=== PATIENT | male | born 1960 | race Caucasian/White ===

== ENCOUNTER → 2023-05-01 07:17 | Outpatient (REF) | payer OTHER, SELFPAY | LOC: DHCBS MAIN 07:17 | PROVIDERS: ATTENDING PHYSICIAN Internal Medicine Cardiovascular Disease; FAMILY PHYSICIAN Family Medicine | DX: I48.92 Unspecified atrial flutter (principal); I10 Essential (primary) hypertension | CPT/HCPCS: 93306 ==

== ENCOUNTER 2023-05-10 05:50 | Day surgery (SDC) | payer OTHER, SELFPAY ==
[2023-04-28 12:52] VITALS: BMI 26.5
[2023-04-28 12:59] LABS: % Basophils 0.5 % (0-2); % Eosinophils 1.6 % (0-6); % Immature Granulocytes 0.3 % (0-0.5); % Lymphocytes 25.6 % (20.5-51.1); % Monocytes 6.8 % (1.7-9.3); % Neutrophils 65.2 % (42.2-75.2); Absolute Eosinophils 0.1 10^3/uL (0-0.7); Absolute Lymphocytes 1.7 10^3/uL (1.2-3.4); Absolute Monocytes 0.4 10^3/uL (0.1-0.6); Absolute Neutrophils 4.2 10^3/uL (1.4-6.5); Hematocrit 41.7 % (39.0-52.0); Hemoglobin 14.4 g/dL (13.0-18.0); Mean Corp Hgb Conc. 34.5 g/dL (33.0-37.0); Mean Corpuscular Hgb 30.4 pg (27.0-31.0); Mean Corpuscular Volume 88.2 fL (80.0-94.0); Mean Platelet Volume 9.6 fL (7.4-10.4); Nucleated Red Blood Cells % 0 % (-); Platelet Count 155 10^3/uL (130-400); Red Blood Cell Count 4.73 10^6/uL (4.70-6.10); Red Cell Dist. Width 13.1 % (11.5-14.5); White Blood Cell Count 6.5 10^3/uL (4.8-10.8)
[2023-04-28 13:21] LABS: ALT (SGPT) 31 U/L (0-50); AST (SGOT) 28 U/L (17-59); Albumin 3.9 g/dl (3.5-5.0); Alkaline Phosphatase 74 U/L (38-126); Blood Urea Nitrogen 13 mg/dl (9-20); Calcium 9.3 mg/dl (8.4-10.2); Carbon Dioxide 27 mmol/L (22-30); Chloride 105 mmol/L (98-107); Estimated Creatinine Clearance 89 ml/min; Glucose 98 mg/dl (70-99); INR 1.67; Magnesium 2.3 mg/dl (1.6-2.3); PT 19.8 Sec (11.4-14.6); Potassium 3.7 mmol/L (3.5-5.1); Sodium 139 mmol/L (135-145); Total Bilirubin 0.5 mg/dl (0.2-1.3); Total Protein 6.8 g/dl (6.3-8.2); eGFR > 60.00
[2023-05-10] VITALS (14 sets, daily range): BP systolic 93–118; BP diastolic 55–70
[2023-05-10 09:50] LABS: ACT-LR - POC 314 Seconds (116-155)
[2023-05-10 10:04] LABS: ACT-LR - POC 343 Seconds (116-155)
[2023-05-10 10:53] LABS: ACT-LR - POC 372 Seconds (116-155)
[2023-05-10 11:33] LABS: ACT-LR - POC 363 Seconds (116-155)
[2023-05-10 11:54] LABS: ACT-LR - POC 161 Seconds (116-155)
--- NOTE | 2023-05-10 12:42 | ITS.CL.ABL ---
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
Ablation
Procedure Report:
Primary Thermometer Maker: Anurag Augustin MD
Procedure Date: 05/10/2023
Patient History:
Patient is a pleasant 63 year old male with a past medical history of persistent AF, persistent AFL (typical), RCC, gastric carcinoma, dyslipidemia, HTN, VERA on CPAP.
Indication:
Symptomatic atrial fibrillation
Symptomatic atrial flutter
Arrhythmia Specific History:
Prior Medical Therapies for Rate and Rhythm Control:
X Beta-prakash
[ ] Calcium channel-prakash
[ ] Amiodarone
[ ] Dronederone
[ ] Sotalol
[ ] Flecainide
[ ] Dofetilide
[ ] Options limited by bradycardia
[ ] Options limited by comorbid renal disease
Prior Procedural Therapies for AF/AFL:
X Cardioversion
[ ] Pulmonary Vein Isolation
[ ] Posterior Wall Isolation
[ ] Additional lines (Specify)
[ ] Surgical Thompson-MAZE or PVI (Specify)
Procedure Performed:
X AF ablation procedure (71994) -- includes LA/CS pacing, trans-septal, 3D mapping, + ICE
[ ] +IV drug (75261)
[ ] +Other Arrhythmia (60788)
X +Other AF Line/ablation (62247) - CTI RFA for AFL
Risks and expected recovery has been explained in detail. Alternative options have been explored, and in a shared-decision making fashion we have decided that this was the most appropriate procedure.
Method
NPO status confirmed. Grounding pad applied. Defibrillator pads applied. Continuous surface ECG, pulse oximetry, and blood pressure were monitored. Procedure was performed under general anesthesia, with anesthesia services.
Both groins were clipped, prepped with Chloraprep, and draped in sterile fashion. Time out was called. Local anesthesia administered with bupivacaine. The right and left femoral veins were accessed for catheter placement, using ultrasound guidance,
micro-puncture needle/wire, and modified seldinger technique. 3 sheaths were placed. The following catheters were used:
X Tacticath SE (D/F Curve) ablation catheter
X Viewflex 9Fr ICE catheter
X Inquiry decapolar 6Fr diagnostic catheter
[ ] CRD Hex 6Fr
X Arctic Front Advance Cryoballoon (28mm)
X Achieve Advance mapping catheter (15mm)
[ ] Acuson AcuNav 8 Fr ICE catheter
[ ]Other: [ ]
Intracardiac ultrasound (ICE) was carefully advanced into the right atrium to guide sheath placement over a J-wire, catheter placement, guide trans-septal puncture, identify potential complications, identify anatomic structures and ensure proper
contact between ablation catheter and tissue.
A multipolar catheter were advanced to the coronary sinus. A mapping / ablation catheter was used to record and pace. Intracardiac ultrasound (ICE) was utilized for structural assessment and monitoring. A trace pericardial effusion was noted
posteriorly around the LV which remained unchanged through the entirty of the procedure. Patient had a very prominent will terminalis and eustachian valve in the RA. Tachycardia was characterized by activation patterns in the CS catheters.
Entrainment maneuvers established cavotricuspid isthmus-dependence (PPI-TCL near zero).
Three-dimensional electroanatomic mapping was utilized. Catheter ablation in the right atrium was performed as described below. The patient�s atrial flutter terminated during ablation. Ablation continued until a line was complete from the
tricuspid valve annulus to the IVC-RA junction; performed under CS pacing. Clockwise and counterclockwise trans-isthmus times were determined, and RA activation patterns confirmed bidirectional block. Interval measurements in NSR were made. A
waiting period was observed, after which the procedure was concluded.
Next, we turned out attention to the PVI.
Heparin was given prior to trans-septal puncture. Heparin was given to achieve and maintain a target ACT of 300-400 seconds.
Trans-septal access was performed under ICE guidance. The trans-septal puncture was performed with a SafeSept wire through a Brockenbrough needle assembly. The wire was visualized as it entered the LSPV. The Brockenbrough needle assembly, SafeSept
wire and sheath dilator were removed under negative pressure. The Protrack pigtail wire was advanced through the sheath into the left atrium with position confirmed on ICE and fluoroscopy. The steerable long sheath was exchanged from the Cryo
FlexSheath steerable sheath over the Protrack wire and was advanced into the LA and positioned at the mitral annulus.
ICE and 3D mapping was performed to identify relevant cardiac structures. A careful 3D map was created to assess for regions of low-voltage and abnormal electrogram signals. Additional mapping was performed as outlined below. See synopsis for
details.
Cryoballoon ablation was performed using freeze/thaw/freeze at 2-4 minute intervals. Ablation targets included Cryoballoon temperatures of -30 degrees @ 30 seconds with goal temp typically between -40 and -50 degrees Celsius with time to effect when
measurable recorded to guide duration of application and need for repeat ablation in each vein. Esophageal temperature monitored throughout intervention. Phrenic nerve pacing performed during cryoapplication in the right pulmonary veins to monitor
for any evidence of PNI requiring application termination. See synopsis and procedure log for details.
Catheter and sheath were removed from the left atrium and post-ablation intracardiac echo evaluation was consistent with pre-ablation with no changes and trace pericardial effusion (no changes pre and post procedure) and there is no left atrial
thrombus or left ventricle thrombus seen. Electrophysiology study was performed. Hemostasis was obtained with figure of 8 stitch for each groin and with manual pressure. Protamine was used for reversal.
Estimated Blood Loss
5-10 mL
Procedure Synopsis:
The patient entered the room in atrial flutter.
With regards to the atrial flutter, utilizing electroanatomic three-dimensional navigation, a 3.5 mm tip TacticaReviewZAP SE irrigated ablation catheter was advanced to the right atrium with the assistance of an 11.5 Fr Agilis steerable long sheath. An
electroanatomic three-dimensional map of the right atrium was constructed, with careful attention to anatomic landmarks, including the coronary sinus, IVC-RA and SVC-RA junction, tricuspid valve annulus, and region of the His bundle electrogram. An
ablation line was created from the tricuspid annulus to the IVC in the 6:00 position (JACKIE clock). Power was titrated between 30 and 40 Forman. The patient�s atrial flutter terminated during ablation, with resumption of NSR. The line was completed
during CS pacing, and bidirectional block was achieved. The ablation line was mapped to ensure with double potentials noted. After an extensive waiting period, bidirectional block persisted.
With regard to the AF, three-dimensional mapping with EnSite system was performed with reconstruction of left atrium utilizing Achieve catheter. Intracardiac ultrasound and EnSite was used for guidance of ablation and placement of the Cryoballoon.
PV seal was confirmed with pressure waveform and ICE. Using the Achieve catheter, it was confirmed that pulmonary veins were active. All pulmonary veins were isolated successfully using Cryoballoon ablation using freeze/thaw/freeze cycles at
2-4-minute intervals, with good [id number] of isolation. During the right-sided PV ablation, phrenic nerve pacing was performed to assess the phrenic nerve strength and the phrenic nerve was intact throughout the right-sided ablation. During
ablation in the RSPV, after 30s ablation there was sudden/abrupt loss of phrenic capture. Ablation was immediately terminated with 'double tap' on consule to deflate the balloon. Phrenic nerve pacing demonstrated weak recovery after 15 minutes which
continued to improve by 30 minutes post ablation. At the termination of the case, phrenic capture was consistent with pacing. Pre- and post-pulmonary vein recording and pacing from the Achieve catheter was utilized to ensure complete pulmonary vein
isolation. LA voltage map created at procedure conclusion confirming WACA of bilateral PVs. No arrhythmias were induced at completion of the case during electrophysiology study.
Fluoroscopy: 24.7 minutes; 60.45 mGy; DAP 7.94
Contrast used: 0 cc
Baseline Intervals:
Rhythm: AFL
QRS: 92 ms
QT: 404 ms
TCL 260 ms
Post-Procedure Intervals:
SD: 118 ms
QRS: 85 ms
QT: 422 ms
QTc: 406 ms
A-A: 1078 ms
R-R: 1078 ms
AVWB: 370 ms
AVERP: 600/330 ms
Conclusions:
- Typical, counterclockwise atrial flutter. Isthmus-dependence was established with entrainment.
- Successful ablation of the cavotricuspid isthmus with bidirectional block.
- Successful pulmonary vein isolation using cryoballoon
Recommendations
- Bedrest with straight-leg precautions as ordered
- Anticipate same day discharge if patient meeting clinical metrics
- Resume home medications as indicated
- Ok to resume anticoagulation tonight if patient and groin sites stable
- PPI daily for 30 days
- Plan for follow-up in office in 4-6 weeks
Luís Gallegos DO
Clinical Cardiac Gauge Controller
cc: Anurag Augustin MD; Kayy Linares MD
[2023-05-10] MEDS: COMPAZINE 5 MG IV (13:23)
[2023-05-10 14:40] LABS: ACT-LR - POC > 397 Seconds (116-155)
[2023-05-10 14:40] LABS: ACT-LR - POC > 397 Seconds (116-155)
--- NOTE | 2023-05-10 16:15 | W.PN.UPDATE ---
Update Note
Progress Note Update
63 yo WM s/p PVI and CTI flutter ablation (same day). He feels good, no cp, sob, demetri diet, voiding, he did have nausea immediately post procedure which has resolved. EKG SR, b/l groins c/d/i soft. He will continue OAC Eliquis dose will be taken at
6pm at home. HE will continue metoprolol and will add PPI for 30 days. Activity restrictions reviewed. He will f/u Dr. Augustin 1 mo, then Dr. Gallegos in 3 mo. He is for d/c home after 5pm.
Patient History:
Patient is a pleasant 63 year old male with a past medical history of persistent AF, persistent AFL (typical), RCC, gastric carcinoma, dyslipidemia, HTN, VERA on CPAP.
Indication:
Symptomatic atrial fibrillation
Symptomatic atrial flutter
== END 2023-05-10 17:05 | disposition home or self-care (01) ==
LOC: CATH 05:50
PROVIDERS: ATTENDING PHYSICIAN Internal Medicine Cardiovascular Disease; FAMILY PHYSICIAN Family Medicine; OTHER PHYSICIAN Internal Medicine Cardiovascular Disease
DX: I48.19 Other persistent atrial fibrillation (principal); I48.92 Unspecified atrial flutter; I10 Essential (primary) hypertension; I73.9 Peripheral vascular disease, unspecified; Z86.73 Personal history of transient ischemic attack (TIA), and cerebral infarction without residual deficits; Z87.891 Personal history of nicotine dependence; G47.33 Obstructive sleep apnea (adult) (pediatric); Z86.14 Personal history of Methicillin resistant Staphylococcus aureus infection; F32.A Depression, unspecified; F41.9 Anxiety disorder, unspecified; E78.5 Hyperlipidemia, unspecified; Z79.899 Other long term (current) drug therapy; Z79.01 Long term (current) use of anticoagulants; R06.02 Shortness of breath; R42 Dizziness and giddiness; M54.2 Cervicalgia; R00.2 Palpitations; R07.9 Chest pain, unspecified
CPT/HCPCS: C1766 ×2; C1894; C1730; C2630; C1733; 36415; 75572; 76937; 80053; 83735; 85025; 85347; 85610; 86850; 86900; 86901; 93005; 93655; 93656; Q9967

== ENCOUNTER → 2023-08-03 14:46 | Outpatient (REF) | payer OTHER, SELFPAY | LOC: RAD 14:46 | PROVIDERS: ATTENDING PHYSICIAN Nurse Practitioner Family | DX: M79.641 Pain in right hand (principal) | CPT/HCPCS: 73130 ==

== ENCOUNTER → 2023-11-27 06:17 | Day surgery (SDC) | payer OTHER, SELFPAY | LOC: GI 06:17 | PROVIDERS: ATTENDING PHYSICIAN Internal Medicine | DX: Z12.11 Encounter for screening for malignant neoplasm of colon (principal); D12.2 Benign neoplasm of ascending colon; D12.7 Benign neoplasm of rectosigmoid junction; K63.5 Polyp of colon; K57.30 Diverticulosis of large intestine without perforation or abscess without bleeding; D12.8 Benign neoplasm of rectum; K64.8 Other hemorrhoids; Z86.010 Personal history of colon polyps | CPT/HCPCS: 45385; 45380; 88305 ==

== ENCOUNTER → 2023-12-25 08:55 | Outpatient (REF) | payer OTHER, SELFPAY | LOC: RAD 08:55 | PROVIDERS: ATTENDING PHYSICIAN Surgery Vascular Surgery; FAMILY PHYSICIAN Family Medicine | DX: I77.9 Disorder of arteries and arterioles, unspecified (principal) | CPT/HCPCS: 93922; 93925 ==

== ENCOUNTER → 2023-12-26 14:09 | Outpatient (REF) | payer OTHER, SELFPAY | LOC: RAD 14:09 | PROVIDERS: ATTENDING PHYSICIAN Internal Medicine Cardiovascular Disease; FAMILY PHYSICIAN Family Medicine | DX: I48.92 Unspecified atrial flutter (principal); R10.32 Left lower quadrant pain | CPT/HCPCS: 76882 ==

== ENCOUNTER → 2024-02-02 06:39 | Outpatient (REF) | payer OTHER, SELFPAY | LOC: RAD 06:39 | PROVIDERS: ATTENDING PHYSICIAN Internal Medicine Cardiovascular Disease; FAMILY PHYSICIAN Family Medicine | DX: I48.92 Unspecified atrial flutter (principal); R10.32 Left lower quadrant pain | CPT/HCPCS: 93880 ==

== ENCOUNTER → 2024-02-08 06:15 | Day surgery (SDC) | payer OTHER, SELFPAY | LOC: GI 06:15 | PROVIDERS: ATTENDING PHYSICIAN Internal Medicine | DX: R93.3 Abnormal findings on diagnostic imaging of other parts of digestive tract (principal); K63.89 Other specified diseases of intestine | CPT/HCPCS: 43239; 88305 ==

== ENCOUNTER → 2024-08-01 07:10 | Outpatient (REF) | payer OTHER, SELFPAY | LOC: RAD 07:10 | PROVIDERS: ATTENDING PHYSICIAN Surgery Vascular Surgery; FAMILY PHYSICIAN Family Medicine | DX: I77.9 Disorder of arteries and arterioles, unspecified (principal) | CPT/HCPCS: 93922; 93925 ==

== ENCOUNTER 2024-09-13 12:52 | Emergency (ER) | payer OTHER, SELFPAY ==
[2024-09-13 12:55] VITALS: BP 121/58
[2024-09-13 13:27] LABS: Hematocrit 40.6 % (39.0-52.0); Hemoglobin 13.9 g/dL (13.0-18.0); Mean Corp Hgb Conc. 34.2 g/dL (33.0-37.0); Mean Corpuscular Volume 88.6 fL (80.0-94.0); Nucleated Red Blood Cells % 0 % (-); Platelet Count 165 10^3/uL (130-400); Red Cell Dist. Width 12.4 % (11.5-14.5)
[2024-09-13 13:49] LABS: ALT (SGPT) 40 U/L (0-50); AST (SGOT) 26 U/L (17-59); Albumin 4.4 g/dl (3.5-5.0); Alkaline Phosphatase 73 U/L (38-126); Blood Urea Nitrogen 21 mg/dl (9-20); Calcium 9.4 mg/dl (8.4-10.2); Carbon Dioxide 26 mmol/L (22-30); Chloride 108 mmol/L (98-107); Glucose 62 mg/dl (70-99); Potassium 4.5 mmol/L (3.5-5.1); Sodium 137 mmol/L (135-145); Total Protein 7.2 g/dl (6.3-8.2); eGFR > 60.00
--- NOTE | 2024-09-13 16:42 | ED.GENMED ---
History of Present Illness
General
Chief Complaint: Generalized Pain
Time Seen by Provider: 09/13/24 16:26
History of Present Illness
History of Present Illness:
Patient is a 64-year-old male with past medical history of sleep apnea, hypertension, hyperlipidemia, esophageal cancer, here today for evaluation of approximately 2 to 3 weeks of joint pain and stiffness. He reports pain along his wrists, elbows,
shoulders, hips, and knees/ankles. No falls, trauma, or injuries. He has noted associated swelling. No pus or drainage noted. No fevers. No unexplained weight loss. No recent travel outside of the country. No sick contacts. He has never had
similar symptoms previously. No personal or family history of any autoimmune conditions. He was recently bit by a tick approximately 2 to 3 months ago but the tick was noted to be larger in nature. This was removed. He has noted nonspecific
rashes along his lower extremities but no bull's-eye rash noted. He does report a prior history of MRSA and recently had a skin infection along his left forearm and left axilla. He was started on 2 rounds of antibiotics. Symptoms are improving.
He attempted to follow-up with his primary care provider and was able to schedule an appointment for this Monday.
Past History
Past History
ED Past Medical History: Cancer (Esophageal), HTN, Hypercholesterolemia, Other (VERA) and Other (Paroxysmal atrial fib on anticoagulation, strokes x2, gastrectomy for stomach cancer)
ED Past Surgical History: Other (Bilateral inguinal hernia repairs, nasal fracture, ORIF 2003)
Social History
Tobacco: Former smoker (reported quitting in February 2019)
Alcohol: Occasional
Personal:
Living: with family
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
Family History
Family History: Other (Father with diabetes mother with breast and colon cancer)
Review of Systems
Review of Systems
All Other Systems: ROS reviewed and negative except as documented in HPI and ROS
Phy Exam
Physical Exam
Physical Exam:
GENERAL: Alert , in no apparent distress
EYE: pupils equal and reactive
NECK: Supple
ENT: o/p clr, mmm.
CARDIAC: Regular rate and rhythm .
LUNGS: Clear breath sounds bilaterally, no acute respiratory distress, no wheezes/rales/rhonchi
NEUROLOGICAL: Alert and oriented, no focal neuro deficits
SKIN: Warm and dry, skin intact. There is mild nonspecific hyperpigmentation/patches of pink discoloration along the bilateral lower extremities; there is evidence of a healing firm nontender nonerythematous pustular lesion along the left forearm
MUSCULOSKELETAL: No edema, well perfused. Full range of motion
PSYCH: Normal and appropriate interaction.
Course
Orders/Labs/Results
Orders:
Orders
09/13/24 13:12
Complete Blood Count/With Diff Urgent
Comprehensive Metabolic Panel Urgent
Lyme Progressive Urgent
Abnormal Lab Results
09/13/24
13:12
RBC 4.58 L 10^6/uL
(4.70-6.10)
Chloride 108 H mmol/L
(98-107)
BUN 21 H mg/dl
(9-20)
Glucose 62 L mg/dl
(70-99)
09/13/24 13:12
09/13/24 13:12
Vital Signs
Initial and Last Documented VS:
Initial Vital Signs
Temp Pulse Resp BP Pulse Ox
98.2 F 56 20 121/58 98
09/13/24 12:55 09/13/24 12:55 09/13/24 12:55 09/13/24 12:55 09/13/24 12:55
Last Documented Vital Signs
Temp Pulse Resp BP Pulse Ox
98.2 F 57 16 115/65 96
09/13/24 12:55 09/13/24 17:13 09/13/24 17:13 09/13/24 17:13 09/13/24 17:13
MDM/Problems Addressed
Differential Diagnosis Includes:
Patient is a 64-year-old male with past medical history of sleep apnea, hypertension, hyperlipidemia, esophageal cancer, here today for evaluation of approximately 2 to 3 weeks of joint pain and stiffness. Overall, patient appears well. Vitals
grossly within normal limits. Physical examination described above. Laboratory testing was performed in triage which is grossly unremarkable. Lyme testing was ordered but will be a send out test. The patient is presenting with polyarthralgia of
uncertain etiology but may be secondary to Lyme disease given recent tick bite. We will perform testing. We also discussed the possibility of an autoimmune condition. The patient has no emergent findings identified. Findings are not consistent
with a septic arthropathy at this time. Patient has full range of motion. Compartments are soft throughout. Patient neurologically intact. We discussed supportive measures and close follow-up with the patient's primary care provider this
upcoming Monday. We will provide the patient topical lidocaine patches to use as directed as needed. He is also requesting a refill of his mupirocin as he has been applying this to his skin wounds with prior history of MRSA. Will provide refill.
Return precautions given. Recommend close follow-up. All questions answered. Stable for discharge.
*Pulse Oximetry
SaO2: 98
Oxygen Mode of Delivery: Room air
Patient hypoxic: no
*Critical Care Note
Total Time (30-74mins, 75-104mins- exclusive of procedures): Not Applicable
ED Attending Note
-
Portions of this chart may have been created with voice recognition software.� Occasional wrong word or��sound alike� substitutions may have occurred due to the inherent limitations of voice recognition software.
Discharge Plan
Departure
Patient Disposition: Home (Routine Discharge)
Date of Disposition: 09/13/24
Time of Disposition: 17:23
Patient with high blood pressure during this ER visit?: No
Condition: Fair
Discharge Problem:
Polyarthralgia
Instructions: Muscle, joint, and bone pain - Discharge instructions
Prescriptions:
New
lidocaine 5 % adhesive patch,medicated
1 patch topical DAILY Qty: 15 0RF
Rx Instructions:
May wear for 12 hours once daily.
mupirocin [Centany] 2 % ointment
1 applic topical TID 7 Days Qty: 22 0RF
No Action
atorvastatin 40 MG tablet
40 mg PO HS
lisinopril 10 MG tablet
10 mg PO HS
metoprolol succinate 25 MG tablet extended release 24 hr
25 mg PO DAILY
Airborne (ascorbic acid)
2 tab PO DAILY
Bupropion Er
150 mg DAILY
Flintstones Multivitamin
1 tab PO DAILY
IBgard
1 tab PO PRN PRN (Reason: gi distress)
Xarelto tablet
20 mg PO DAILY
Zyrtec
10 mg PO DAILY
cyanocobalamin (vitamin B-12)
1,000 mcg PO MONTHLY
pantoprazole 40 mg Tablet,Delayed Release (Dr/Ec)
40 mg PO DAILY Qty: 30 0RF
Referrals:
Mynor Tran MD [Active, Rheumatology] - Follow up in 1 week
UNKNOWN - PT DOES,NOT KNOW [Unknown Provider]
Activity Restrictions/Additional Instructions:
You were seen today for evaluation of joint pain. Your workup today is largely unremarkable.
We are testing you for Lyme disease and we will contact you with abnormal results.
Follow-up with your doctor for your scheduled appointment this upcoming Monday. We also discussed following up with a hydrologic modeler for further testing and evaluation.
Return for any new, worsening, or concerning symptoms.
Interventions
Interventions:
*Risk Screen - Suicide Last Done: 09/13/24 12:55
*General Assessment Last Done: 09/13/24 12:55
*Neglect/Abuse Screening Last Done: 09/13/24 12:55
*ED- Fall Risk Assessment Last Done: 09/13/24 17:13
*ED COVID-19 Vaccine History Last Done: 09/13/24 17:13
Discharge Date and Time
Print Language: SETSWANA
[2024-09-13 17:13] VITALS: BP 115/65
== END 2024-09-13 17:33 | disposition home or self-care (01) ==
LOC: EMR 12:52
PROVIDERS: Emergency Medicine; EMERGENCY PHYSICIAN Emergency Medicine; FAMILY PHYSICIAN Family Medicine
DX: M25.59 Pain in other specified joint (principal); E78.00 Pure hypercholesterolemia, unspecified; G47.33 Obstructive sleep apnea (adult) (pediatric); I10 Essential (primary) hypertension; I48.0 Paroxysmal atrial fibrillation; Z79.01 Long term (current) use of anticoagulants; Z86.73 Personal history of transient ischemic attack (TIA), and cerebral infarction without residual deficits; Z87.891 Personal history of nicotine dependence; Z86.14 Personal history of Methicillin resistant Staphylococcus aureus infection; Z85.028 Personal history of other malignant neoplasm of stomach
CPT/HCPCS: 99283; 80053; 85025; 86618

== ENCOUNTER → 2024-10-14 11:31 | Outpatient (REF) | payer OTHER, SELFPAY | LOC: RAD 11:31 | PROVIDERS: ATTENDING PHYSICIAN Internal Medicine; FAMILY PHYSICIAN Family Medicine | DX: M25.50 Pain in unspecified joint (principal) | CPT/HCPCS: 73130 ==

== ENCOUNTER → 2025-02-05 07:32 | Outpatient (REF) | payer OTHER, SELFPAY | LOC: RAD 07:32 | PROVIDERS: ATTENDING PHYSICIAN Surgery Vascular Surgery; FAMILY PHYSICIAN Family Medicine | DX: I73.9 Peripheral vascular disease, unspecified (principal) | CPT/HCPCS: 93922 ==

== ENCOUNTER 2025-02-16 03:09 | Emergency (ER) | payer OTHER, SELFPAY ==
[2025-02-16 03:24] VITALS: BP 98/57
[2025-02-16 04:29] VITALS: BMI 28.4
[2025-02-16] MEDS: TYLENOL 1000 MG PO (04:51)
[2025-02-16] MEDS: ZOFRAN 4 MG IV (04:52)
[2025-02-16 05:00] VITALS: BP 126/51
[2025-02-16 05:10] LABS: ALT (SGPT) 27 U/L (0-50); AST (SGOT) 21 U/L (17-59); Albumin 3.8 g/dl (3.5-5.0); Alkaline Phosphatase 76 U/L (38-126); Blood Urea Nitrogen 16 mg/dl (9-20); Calcium 8.8 mg/dl (8.4-10.2); Carbon Dioxide 26 mmol/L (22-30); Chloride 103 mmol/L (98-107); Estimated Creatinine Clearance 99 ml/min; Glucose 111 mg/dl (70-99); Potassium 3.7 mmol/L (3.5-5.1); Sodium 135 mmol/L (135-145); Total Protein 6.4 g/dl (6.3-8.2); eGFR > 60.00
[2025-02-16 05:26] LABS: COVID-19 Antigen Negative (Negative)
[2025-02-16 05:34] LABS: Hematocrit 38.3 % (39.0-52.0); Hemoglobin 13.1 g/dL (13.0-18.0); Mean Corp Hgb Conc. 34.2 g/dL (33.0-37.0); Mean Corpuscular Volume 90.1 fL (80.0-94.0); Nucleated Red Blood Cells % 0 % (-); Platelet Count 127 10^3/uL (130-400); Red Cell Dist. Width 12.6 % (11.5-14.5)
[2025-02-16 06:00] VITALS: BP 115/47
[2025-02-16 07:00] VITALS: BP 106/44
[2025-02-16] MEDS: NSS 500 IV (07:45)
[2025-02-16] MEDS: TAMIFLU 75 MG PO (07:45)
[2025-02-16 08:00] VITALS: BP 110/52
--- NOTE | 2025-02-16 08:45 | ED.GENMED ---
History of Present Illness
General
Chief Complaint: Abdominal Symptoms
Source: patient
Exam Limitations: none
Time Seen by Provider: 02/16/25 06:40
Nursing documentation reviewed up to this point in time: agreed with
History of Present Illness
History of Present Illness:
Patient presents to ED secondary to 2-day history of bodyache, chills, intermittent cough, along with multiple vomiting episodes. Patient's spouse was diagnosed with flu and was admitted to the hospital and recently discharged home. Denies fever.
Denies shortness of breath. Denies chest pain. Denies dizziness. Denies headache. Denies neck pain. Denies rash. Upon arrival, patient is found to be febrile which he was not aware of.
Past History
Past History
ED Past Medical History: Cancer (Esophageal), HTN, Hypercholesterolemia, Other (VERA) and Other (Paroxysmal atrial fib on anticoagulation, strokes x2, gastrectomy for stomach cancer)
ED Past Surgical History: Other (Bilateral inguinal hernia repairs, nasal fracture, ORIF 2003)
Social History
Tobacco: Former smoker (reported quitting in February 2019)
Alcohol: Occasional
Personal:
Living: with family
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
Family History
Family History: Other (Father with diabetes mother with breast and colon cancer)
Review of Systems
Review of Systems
Allergies reviewed?: Yes
All Other Systems: ROS reviewed and negative except as documented in HPI and ROS
Constitutional: Reports chills
EENT: Reports no symptoms
Respiratory: Reports cough; Denies trouble breathing
Cardiac: Reports no symptoms; Denies chest pain
ABD/GI: Reports nausea and vomiting; Denies abdominal pain
Musculoskeletal: Reports no symptoms
Skin: Reports no symptoms
Neurological: Reports no symptoms
Phy Exam
Physical Exam
Physical Exam:
Physical Exam
General: mild distress, not acutely ill. febrile
Head: nc/at. eomi
Neck: supple. no meningeal signs. normal posterior pharynx
Heart: s1/s2 regular rate and rhythm
Lungs: no acute respiratory distress. clear bilaterally
Abdomen: normal bowel sounds. not tender.
Neuro: alert and oriented x 3. no focal neurological deficits
Skin: no rash
Psychiatric: well kept. interactive and cooperative
Extremities: no edema. no calf tenderness.
Sepsis
Sepsis Screening
Sepsis Assessment: Sepsis Ruled Out
Sepsis Screen
Sepsis Screen: Sepsis Ruled Out
Date: 02/16/25
Time: 20:28
Course
Orders/Labs/Results
Orders:
Orders
02/16/25 04:32
Electrocardiogram (*1) Urgent
Reason for Study: Other
Other Reason for Exam: Possible Sepsis
Cardiac Monitoring- Treatment ONCE
IV Insert/Care/Rem.- Treatment PRN
O2 Therapy [RESP] Urgent
Titrate/Wean O2 to maintain O2 sat greater than (%): 93
Special Instructions: TO MAINTAIN CONTINUOUS O2 SATS > OR = 93%
Pulse Ox/cont/shift [RESP] Urgent
Quantity: 1
Special Instructions: CONTINUOUS
02/16/25 04:34
Chest [CR Chest - 2 Views ] Urgent
Comment:
Reason For Exam: shortness of breathe
02/16/25 04:44
COVID-19 Antigen Urgent
Source: Nasal Swab
Complete Blood Count/With Diff Urgent
Comprehensive Metabolic Panel Urgent
Lactic Acid Urgent
Influenza A+B Rapid Molecular Urgent
SIERRA Source: Nasal Swab
Specimen Description:
02/16/25 04:48
Acetaminophen [Tylenol] 1,000 mg .ROUTE .STK-MED ONE
Ondansetron Injectable [Zofran] 4 mg .ROUTE .STK-MED ONE
02/16/25 04:50
Acetaminophen [Tylenol] 1,000 mg PO NOW STA
02/16/25 04:52
Ondansetron Injectable [Zofran] 4 mg IV NOW STA
02/16/25 07:20
0.9% Sodium Chloride 500 ml [Nss] 500 ml IV BOLUS
Oseltamivir Phosphate [Tamiflu] 75 mg PO NOW STA
Abnormal Lab Results
02/16/25
04:44
RBC 4.25 L 10^6/uL
(4.70-6.10)
Hct 38.3 L %
(39.0-52.0)
Plt Count 127 L 10^3/uL
(130-400)
Absolute Lymphs (auto) 0.3 L 10^3/uL
(1.2-3.4)
Neutrophils % 84.3 H %
(42.2-75.2)
Lymphocytes % 6.7 L %
(20.5-51.1)
Glucose 111 H mg/dl
(70-99)
02/16/25 04:44
02/16/25 04:44
Vital Signs
Initial and Last Documented VS:
Initial Vital Signs
Temp Pulse Resp BP Pulse Ox
102 F H 84 32 98/57 90
02/16/25 03:24 02/16/25 03:24 02/16/25 03:24 02/16/25 03:24 02/16/25 03:24
Last Documented Vital Signs
Temp Pulse Resp BP Pulse Ox
98.8 F 68 32 111/51 91
02/16/25 09:24 02/16/25 09:15 02/16/25 09:15 02/16/25 09:00 02/16/25 09:15
MDM/Problems Addressed
MDM/Problems Addressed:
History and exam consistent with symptoms secondary to influenza. Patient reports significant improvement symptoms after treatment. Patient otherwise remains hemodynamically stable without any acute respiratory distress. Discussed treatment
options with the patient, including potential admit to the hospital, with history of underlying malignancy. However, at this time, patient feels comfortable going home and will follow-up with PCP as an outpatient, or return to ED with worsening
symptoms. As such, decision made to discharge patient home on Tamiflu, along with Zofran and inhaler to be used supportively. Patient will be discharged home in stable condition, to the care of his spouse.
*Pulse Oximetry
SaO2: 87
Nasal Cannula flow liters per minute: 2
Oxygen Mode of Delivery: Room air
Patient hypoxic: no
*Critical Care Note
Total Time (30-74mins, 75-104mins- exclusive of procedures): Not Applicable
ED Attending Note
-
Portions of this chart may have been created with voice recognition software.� Occasional wrong word or��sound alike� substitutions may have occurred due to the inherent limitations of voice recognition software.
Discharge Plan
Departure
Patient Disposition: Home (Routine Discharge)
Date of Disposition: 02/16/25
Time of Disposition: 08:45
Patient with high blood pressure during this ER visit?: Yes
Condition: Fair
Discharge Problem:
Influenza A
Instructions: Flu in adults - ED (DC)
Prescriptions:
New
oseltamivir [Tamiflu] 75 mg capsule
75 mg PO BID Qty: 9 0RF
ondansetron 4 mg Tablet,Disintegrating
4 mg PO TIDPRN PRN (Reason: nausea/vomiting) Qty: 12 0RF
albuterol sulfate [Ventolin HFA] 90 mcg/actuation HFA aerosol inhaler
2 puff inhalation Q6H PRN (Reason: shortness of breath or wheezing) Qty: 6.7 0RF
No Action
atorvastatin 40 MG tablet
40 mg PO HS
lisinopril 10 MG tablet
10 mg PO HS
metoprolol succinate 25 MG tablet extended release 24 hr
25 mg PO DAILY
Airborne (ascorbic acid)
2 tab PO DAILY
Bupropion Er
150 mg DAILY
Flintstones Multivitamin
1 tab PO DAILY
IBgard
1 tab PO PRN PRN (Reason: gi distress)
Xarelto tablet
20 mg PO DAILY
Zyrtec
10 mg PO DAILY
cyanocobalamin (vitamin B-12)
1,000 mcg PO MONTHLY
pantoprazole 40 mg Tablet,Delayed Release (Dr/Ec)
40 mg PO DAILY Qty: 30 0RF
lidocaine 5 % adhesive patch,medicated
1 patch topical DAILY Qty: 15 0RF
Rx Instructions:
May wear for 12 hours once daily.
mupirocin [Centany] 2 % ointment
1 applic topical TID 7 Days Qty: 22 0RF
Referrals:
Florencio Sellers MD [Family Provider, Family Practice]
Activity Restrictions/Additional Instructions:
As discussed, please follow-up with your primary care physician for reevaluation this week. Please consider return to ED with worsening symptoms. Your prescriptions have been sent electronically to [facility] pharmacy on [facility] in [place].
Interventions
Interventions:
*General Assessment Last Done: 02/16/25 03:24
*Neglect/Abuse Screening Last Done: 02/16/25 03:24
*ED COVID-19 Vaccine History Last Done: 02/16/25 03:24
*ED Influenza Vaccine History Last Done: 02/16/25 03:24
[facility] Fall Risk Assessment Tool Last Done: 02/16/25 04:29
*Risk Screen - Suicide (C-SSRS) Last Done: 02/16/25 04:30
*Nursing Disposition Last Done: 02/16/25 09:24
PA-Frpudg-Omotxvjqth Assessment Last Done: 02/16/25 04:30
ED- Neurological Assessment Last Done: 02/16/25 04:30
ED-Skin Assessment Last Done: 02/16/25 04:30
Discharge Date and Time
Print Language: [place]
[2025-02-16 09:00] VITALS: BP 111/51
== END 2025-02-16 09:24 | disposition home or self-care (01) ==
LOC: EMR 03:09
PROVIDERS: Emergency Medicine; EMERGENCY PHYSICIAN Emergency Medicine; FAMILY PHYSICIAN Family Medicine
DX: J10.1 Influenza due to other identified influenza virus with other respiratory manifestations (principal); E78.00 Pure hypercholesterolemia, unspecified; I10 Essential (primary) hypertension; I48.0 Paroxysmal atrial fibrillation; Z79.01 Long term (current) use of anticoagulants; G47.33 Obstructive sleep apnea (adult) (pediatric); Z85.028 Personal history of other malignant neoplasm of stomach; Z86.73 Personal history of transient ischemic attack (TIA), and cerebral infarction without residual deficits; Z87.891 Personal history of nicotine dependence; Z90.3 Acquired absence of stomach [part of]; Z11.52 Encounter for screening for COVID-19
CPT/HCPCS: 96374; 99284; 71046; 80053; 83605; 85025; 87502; 87811